=== PATIENT | male | born 1965 | race Caucasian/White ===

== ENCOUNTER 2018-05-20 12:20 | Outpatient (REF) | payer OTHER, SELFPAY ==
[2018-05-20 14:25] LABS: BUN 11 mg/dL (7-18); CREATININE 1.21 mg/dL (0.70-1.30); Calcium 9.1 mg/dL (8.5-10.1); Chloride 104 mmol/L (98-107); Cholesterol 224 mg/dL (50-200); Glucose 98 mg/dL (70-100); HDL Cholesterol 42 mg/dL (40-60); LDL CHOLESTEROL 162 mg/dL (<100); Potassium 4.5 mmol/L (3.5-5.1); Sodium 142 mmol/L (136-145); Triglyceride 138 mg/dL (30-150)
== END 2018-05-20 12:40 ==
LOC: NCHCN 12:20
PROVIDERS: PCP Family Medicine; Visit Provider Nurse Practitioner Family
DX: Z00.00 Encounter for general adult medical examination without abnormal findings (principal); Z13.220 Encounter for screening for lipoid disorders; Z13.228 Encounter for screening for other metabolic disorders
CPT/HCPCS: 80048; 80061; 83721

== ENCOUNTER 2018-10-16 09:29 | Outpatient (REF) | payer OTHER, SELFPAY ==
[2018-10-16 12:43] LABS: HCT 39.5 % (40.0-50.0); HGB 13.6 g/dL (13.5-17.5); Mean Corp. HGB Concentration 34.4 g/dL (32.0-36.0); Mean Corpuscular Hemoglobin 27.3 pg (27.0-33.0); Mean Corpuscular Volume 79.2 fL (80-95); Mean Platelet Volume 10.7 fL (8.0-11.0); Platelet Count 257 x1000/uL (130-400); RBC 4.99 m/cumm (4.50-6.00); RBC Distribution Width 13.7 % (11.8-14.1); White Blood Cell Count 6.32 k/cumm (4.4-10.8)
== END 2018-10-16 09:49 ==
LOC: NCHCN 09:29
PROVIDERS: PCP Family Medicine; Visit Provider Nurse Practitioner Family
DX: R53.83 Other fatigue (principal)
CPT/HCPCS: 85027; 84443

== ENCOUNTER 2020-05-19 19:57 | Outpatient (REF) | payer OTHER, SELFPAY ==
[2020-05-19 21:43] LABS: Anion Gap 9.2 mmol/L (3-11); BUN 15 mg/dL (7-18); CO2 29.8 mmol/L (21.0-32.0); CREATININE 1.25 mg/dL (0.70-1.30); Calculated LDL 142 mg/dL (<100); Chloride 104 mmol/L (98-107); Cholesterol 224 mg/dL (<200); Glucose 107 mg/dL (74-106); HDL Cholesterol 37 mg/dL (40-60); Potassium 4.5 mmol/L (3.5-5.1); Sodium 143 mmol/L (136-145); Triglyceride 225 mg/dL (<150)
== END 2020-05-19 20:17 ==
LOC: NCHCN 19:57
PROVIDERS: PCP Family Medicine; Visit Provider Nurse Practitioner Family
DX: E78.5 Hyperlipidemia, unspecified (principal); I10 Essential (primary) hypertension
CPT/HCPCS: 80048; 80061

== ENCOUNTER 2021-08-04 16:08 | Outpatient (REF) | payer OTHER, SELFPAY ==
[2021-08-05 12:35] LABS: COVID-19 RT-PCR UVMMC Result Negative (Negative)
== END 2021-08-04 16:09 | disposition home or self-care (01) ==
LOC: LBN 16:08
PROVIDERS: PCP Family Medicine; Visit Provider Physician Assistant Medical
DX: Z20.822 Contact with and (suspected) exposure to COVID-19 (principal); J34.89 Other specified disorders of nose and nasal sinuses
CPT/HCPCS: U0003

== ENCOUNTER 2022-07-20 18:37 | Outpatient (REF) | payer OTHER, SELFPAY ==
[2022-07-20 19:26] LABS: Anion Gap 8.2 mmol/L (3-11); BUN 17 mg/dL (7-18); CO2 28.8 mmol/L (21.0-32.0); Calcium 8.9 mg/dL (8.5-10.1); Calculated LDL 85 mg/dL (<100); Chloride 103 mmol/L (98-107); Cholesterol 161 mg/dL (<200); Estimated GFR 88.33 (mL/min/1.73m2); Glucose 100 mg/dL (74-106); HDL Cholesterol 46 mg/dL (40-60); Potassium 3.8 mmol/L (3.5-5.1); Sodium 140 mmol/L (136-145); Triglyceride 150 mg/dL (<150)
== END 2022-07-20 18:38 | disposition home or self-care (01) ==
LOC: NCHCN 18:37
PROVIDERS: PCP Family Medicine; Visit Provider Family Medicine
DX: E78.5 Hyperlipidemia, unspecified (principal); I10 Essential (primary) hypertension
CPT/HCPCS: 80048; 80061

== ENCOUNTER 2022-10-05 09:51 | Emergency (ER) | payer OTHER, SELFPAY ==
[2022-10-05 09:56] VITALS: BP 142/83; PULSE 88; RESP 18; TEMP 36.9; O2SAT 99
--- NOTE | 2022-10-05 10:00 | DI.US_ITS ---
Exam(s) US ABDOMEN EXAM: US ABDOMEN CLINICAL HISTORY: Right upper quadrant pain TECHNIQUE: Ultrasound abdomen performed using standard protocol. COMPARISON: CT ABD PELVIS WITH CONTRAST from 07/19/2016 FINDINGS: ABDOMINAL AORTA AND IVC: Visualized portions normal caliber. PANCREAS: Normal where visualized. LIVER: There is increased echogenicity of the liver consistent with fatty infiltration. Hepatopedal flow in the Portal Vein. GALLBLADDER:No evidence of cholelithiasis. No evidence of wall thickening. No pericholecystic fluid i dentified. BILIARY SYSTEM: Common bile duct measures < 7 mm. No intrahepatic biliary ductal dilation. ASHRAF'S SIGN: Negative. KIDNEYS: Kidneys are symmetric in size. No evidence of renal calculi. No evidence of hydronephrosis. No renal mass or cyst identified. SPLEEN: The liver measures 13.3 cm. ASCITES: None seen. IMPRESSION: 1. Hepatic steatosis. 2. Findings were discussed with Aron Silveira at 12:56 p.m. on 10/05/2022. DATA REPOSITORY:
--- OUTSIDE RECORDS SUMMARY | 2022-10-05 10:00 | XMS_ITS ---
Author Name Mars Trinh Address [address], [place] [id number] [facility] Address [address], [place] [id number] Care Team Providers Care Sales Clerk Name Role Phone Mars Trinh Unavailable [phone] PROBLEMS Type Condition ICD9-CM Code [id number] Code Onset Dates Condition Status SNOMED Code Problem History of sinusitis Z87.09 Active 861425327 Problem Deviated nasal septum J34.2 Active 780028842 Problem Hypertrophy of nasal turbinates J34.3 Active 26125160 Problem Chronic ethmoidal sinusitis J32.2 Active 58189064 Problem Chronic sphenoidal sinusitis J32.3 Active 25372827 Problem Chronic maxillary sinusitis J32.0 Active 97965567 Problem Chronic frontal sinusitis J32.1 Active 98924035 Problem Screening for colon cancer Z12.11 Active 731087230 Problem Cervical spine pain M54.2 Active 80154886 Problem Dysfunction of both eustachian tubes H69.83 Active 609709667897192 0 Problem Acute sinusitis J01.90 Active 44092981 Problem Mastoiditis of right side H70.91 Active 96303867 Problem Otalgia, right ear H92.01 Active 97082 004 Problem Environmental allergies Z91.09 Active 413366854 Problem Mastoiditis, left H70.92 Active 553238 01 Problem Dysphagia R13.10 Active 59493757 Problem Acute recurrent ethmoidal sinusitis J01.21 Active 61734222 Problem Multiple lipomas D17.9 Active 4652800 2 Problem Metatarsalgia, left foot M77.42 Active 206047023555298 Problem Sinus congestion R09.81 Active 6981920 5 Problem HTN (hypertension) I10 Active 51261 003 Problem Postnasal drip R09.82 Active 04222626 Problem Hyperlipidemia E78.5 Active 88904681 Problem Nasal polyp J33.9 Active 53304279 Problem Allergic rhinitis due to allergen J30.9 Active 72381242 Problem Back pain M54.9 Active 490322349 Problem Subcutaneous mass R22.9 Active 090119 79385035403 Problem Chronic sinusitis J32.9 Active 340699 00 Problem Degenerative joint disease M19.90 Active 877625979 ALLERGIES Substance Reaction Event Type Date Status environmental Unknown Non Drug Allergy Aug, Act tabatha Vancomycin HCl Unknown Drug Allergy Aug, Active Lisinopril Unknown Drug Allergy Aug, Active Aspirin Unknown Drug Allergy Aug, Active ENCOUNTERS Encounter Location Date Diagnosis [facility] [address] [place], [place] [id number] Aug, Subacute frontal sinusitis J01.10 and Multiple lipomas D17.9 [facility] [address] [place], [place] [id number] Aug, [facility] [address] [place], [place] [id number] Dec, [facility] [address] [place] [id number] Aug, Chronic ethmoidal sinusitis J32.2 [facility] [address] [place], [place] [id number] Dec, Chronic ethmoidal sinusitis J32.2 [facility] [address] [place], [place] [id number] Sep, [facility] [address] [place] [id number] Aug, Acute recurrent ethmoidal sinusitis J01.21 ; Chronic maxillary sinusitis J32.0 ; Allergic rhinitis due to allergen J30.9 ; Environmental allergies Z91.09 ; Postnasal drip R09.82 and Chronic ethmoidal sinusitis J32.2 [facility] [address] [place], [place] [id number] Aug, [facility] [address] [place], [place] [id number] Aug, Deviated nasal septum J34.2 ; Hypertrophy of nasal turbinates J34.3 and Environmental allergies Z91.09 [facility] [address] [place] [id number] Aug, Contusion of nose, initial encounter S00.33XA [facility] [address] [place], [place] [id number] Dec, Conductive hearing loss of right ear with unrestricted hearing of left ear H90.11 [facility] [address] [place], [place] [id number] Dec, Mastoiditis of right side H70.91 and Otalgia, right ear H92.01 [facility] [address] [place] [address] [address] [place], [place] [id number] Dec, [facility] [address] [place] [id number] Dec, Conductive hearing loss, unilateral, right ear, with unrestricted hearing on the contralateral side H90.11 [facility] [address] [place], [place] [id number] Dec, Mastoiditis of right side H70.91 ; Otalgia, right ear H92.01 ; Dysfunction of both eustachian tubes H69.83 ; Nasal polyp J33.9 ; Allergic rhinitis due to allergen J30.9 ; Chronic frontal sinusitis J32.1 ; Chronic ethmoidal sinusitis J32.2 and Chronic sphenoidal sinusitis J32.3 [facility] [address] [place], [place] [id number] Aug, Dysfunction of both eustachian tubes H69.83 [facility] [address] [place], [place] [id number] Mar, Allergic rhinitis due to allergen J30.9 [facility] [address] [place], [place] [id number] Mar, Allergic rhinitis due to allergen J30.9 [facility] [address] [place], [place] [id number] Mar, Allergic rhinitis due to allergen 477.8 [facility] [address] [place] [address] [place] [id number] Mar, Allergic rhinitis due to allergen 477.8 [facility] [address] [place] [id number] Mar, Allergic rhinitis due to allergen 477.8 N [facility] [address] [place], [place] [id number] Jan, Allergic rhinitis due to allergen 477.8 [facility] [address] [place], [place] [id number] Jan, ALLERGIC RHINITIS NOS 477.9 and Postnasal drip 784.91 [facility] [address] [place] [address] [address] [place], [place] [id number] Dec, ALLERGIC RHINITIS NEC 477.8 N [facility] [address] [place], [place] [id number] Dec, Allergic rhinitis due to allergen 477.8 [facility] [address] [place], [place] [id number] Dec, Allergic rhinitis due to allergen 477.8 [facility] [address] [place], [place] [id number] Dec, Allergic rhinitis due to allergen 477.8 [facility] [address] [place], [place] [id number] Nov, Allergic rhinitis due to allergen 477.8 [facility] [address] [place], [place] [id number] Nov, Allergic rhinitis due to allergen 477.8 [facility] [address] [place], [place] [id number] Nov, Chronic sphenoidal sinusitis 473.3 ; Chronic ethmoidal sinusitis 473.2 ; Chronic frontal sinusitis 473.1 ; Chronic maxillary sinusitis 473.0 ; Nasal polyp 471.9 and ALLERGIC RHINITIS NOS 477.9 N [facility] [address] [place], [place] [id number] Nov, Allergic rhinitis due to allergen 477.8 [facility] [address] [place], [place] [id number] Nov, [facility] [address] [place] [id number] Nov, [facility] [address] [place], [place] [id number] October, Allergic rhinitis due to allergen 477.8 [facility] [address] [place], [place] [id number] October, Chronic sinusitis 473.9 [facility] [address] [place], [place] [id number] October, Chronic sphenoidal sinusitis 473.3 ; Chronic ethmoidal sinusitis 473.2 ; Chronic frontal sinusitis 473.1 ; Chronic maxillary sinusitis 473.0 ; Chronic sinusitis 473.9 ; Nasal polyp 471.9 ; 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 and Hypertrophy of nasal turbinates 478.0 [facility] [address] [place], [place] [id number] October, [facility] [address] [place], [place] [id number] October, Nasal polyp 471.9 ; Allergic rhinitis due to allergen 477.8 ; Chronic maxillary sinusitis 473.0 ; Chronic frontal sinusitis 473.1 ; Chronic ethmoidal sinusitis 473.2 ; Chronic sphenoidal sinusitis 473.3 ; 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 and Hypertrophy of nasal turbinates 478.0 [facility] [place] [address] [place], [place] [id number] Sep, [facility] [address] [place], [place] [id number] Sep, Allergic rhinitis due to allergen 477.8 [facility] [address] [place], [place] [id number] Sep, Allergic rhinitis due to allergen 477.8 [facility] [address] [place], [place] [id number] Sep, Allergic rhinitis due to allergen 477.8 [facility] [address] [place], [place] [id number] Aug, Chronic sinusitis NOS 473.9 ; Allergic rhinitis due to allergen 477.8 ; ALLERGIC RHINITIS NOS 477.9 ; Nasal polyp 471.9 and Postnasal drip 784.91 [facility] [address] [place], [place] [id number] Aug, Allergic rhinitis due to allergen 477.8 [facility] [address] [place] [id number] Aug, Allergic rhinitis due to allergen 477.8 [facility] [address] [place] [id number] Aug, ALLERGIC RHINITIS NOS 477.9 [facility] [address] [place] [address] [address] [place] [id number] Aug, ALLERGIC RHINITIS NEC 477.8 [facility] [address] [place], [place] [id number] Aug, Acute sinusitis 461.9 ; ALLERGIC RHINITIS NOS 477.9 ; Nasal polyp 471.9 and Chronic sinusitis 473.9 [facility] [address] [place] [id number] Aug, [facility] [address] [place] [id number] Aug, Allergic rhinitis due to allergen 477.8 [facility] [address] [place] [id number] Aug, Allergic rhinitis due to allergen 477.8 [facility] [address] [place] [id number] Jul, Chronic sinusitis NOS 473.9 ; Acute sinusitis 461.9 ; Allergic rhinitis due to allergen 477.8 ; ALLERGIC RHINITIS NOS 477.9 ; Postnasal drip 784.91 ; Nasal polyp 471.9 and Chronic sinusitis 473.9 [facility] [address] [place], [place] [id number] Jul, [facility] [address] [place], [place] [id number] Jul, Allergic rhinitis due to allergen 477.8 [facility] [address] [place], [place] [id number] Jul, [facility] [address] [place], [place] [id number] Jul, ALLERGIC RHINITIS NOS 477.9 ; Postnasal drip 784.91 ; Nasal polyp 471.9 and Chronic sinusitis 473.9 [facility] [address] [place] [id number] May, Allergic rhinitis due to allergen 477.8 [facility] [address] [place], [place] [id number] May, Allergic rhinitis due to allergen 477.8 [facility] [address] [place], [place] [id number] May, ALLERGIC RHINITIS NEC 477.8 [facility] [address] [place], [place] [id number] May, [facility] [address] [place] [id number] May, Allergic rhinitis due to allergen 477.8 [facility] [address] [place], [place] [id number] May, Allergic rhinitis due to allergen 477.8 [facility] [address] [place] [id number] May, Allergic rhinitis due to allergen 477.8 [facility] [address] [place] [id number] May, Allergic rhinitis due to allergen 477.8 [facility] [address] [place], [place] [id number] May, Allergic rhinitis due to allergen 477.8 N [facility] [address] [place], [place] [id number] May, Allergic rhinitis due to allergen 477.8 [facility] [address] [place], [place] [id number] Mar, Chronic sinusitis NOS 473.9 ; Nasal polyp NOS 471.9 and Allergic rhinitis due to allergen 477.8 N [facility] [address] [place], [place] [id number] Mar, Allergic rhinitis due to allergen 477.8 [facility] [address] [place], [place] [id number] Mar, Allergic rhinitis due to allergen 477.8 [facility] [address] [place], [place] [id number] Mar, ALLERGIC RHINITIS NOS 477.9 [facility] [address] [place], [place] [id number] Mar, ALLERGIC RHINITIS NEC 477.8 [facility] [address] [place], [place] [id number] Mar, Allergic rhinitis due to allergen 477.8 [facility] [place] [address], [address] [place], [place] [id number] Mar, Nasal polyp NOS 471.9 ; Chronic sinusitis NOS 473.9 and Acute sinusitis 461.9 [facility] [address] [place], [place] [id number] Mar, [facility] [address] [place] [address] [address] [place], [place] [id number] Dec, Nasal polyp NOS 471.9 and Chronic sinusitis NOS 473.9 [facility] [address] [place] [id number] Nov, [facility] [address] [place] [id number] October, [facility] [address] [place] [id number] Sep, ALLERGIC RHINITIS NOS 477.9 ; Nasal polyp NOS 471.9 and Postnasal drip 784.91 [facility] [address] [place] [id number] Sep, Nasal polyp NOS 471.9 and Chronic sinusitis NOS 473.9 [facility] [address] [place] [id number] Aug, Nasal polyp NOS 471.9 and Chronic sinusitis NOS 473.9 [facility] [address] [place] [id number] Jul, [facility] [address] [place] [id number] May, Nasal polyp NOS 471.9 ; Chronic sinusitis NOS 473.9 and Acute sinusitis 461.9 [facility] [address] [place] [id number] May, [facility] [address] [place] [id number] Jul, [facility] [address] [place] [id number] Jul, Nasal polyp NOS 471.9 and Chronic sinusitis NOS 473.9 [facility] [address] [place] [address] [place] [id number] May, Chronic sinusitis NOS 473.9 and Nasal polyp NOS 471.9 [facility] [address] [place] [id number] May, [facility] [address] [id number] May, Chronic sinusitis NOS 473.9 and Nasal polyp NOS 471.9 IMMUNIZATIONS No Known Immunizations SOCIAL HISTORY Never Assessed REASON FOR REFERRAL FUNCTIONAL STATUS PLAN OF CARE Activity Details VITAL SIGNS Height 5 ft 6 in in 2022-09-14 Height 5 ft 6 in in 2021-09-22 Height 66 in 2018-09-08 Height 66 in 2018-08-11 Height 66 in 2017-08-12 Height 66 in 2017-01-28 Height 66 in 2017-01-21 Height 66 in 2016-08-20 Height 66 in 2015-02-07 Height 66 in 2014-12-06 Height 66 in 2014-11-24 Height 66 in 2014-11-01 Height 66 in 2014-09-27 Height 66 in 2014-08-30 Height 66 in 2014-07-05 Height 66 in 2014-03-18 Height 66 in 2014-01-20 Height 66 in 2013-10-22 Height N/A in 2013-10-21 Height N/A in 2013-08-17 Height N/A in 2012-07-14 Height 66 in 2012-06-18 Height 66 in 2012-05-28 Weight 215 lbs 2022-09-14 Weight 210 lbs 2021-09-22 Weight 190 lbs 2018-09-08 Weight 193 lbs 2018-08-11 Weight 188 lbs 2017-08-12 Weight 189 lbs 2017-01-28 Weight 189 lbs 2017-01-21 Weight 185 lbs 2016-08-20 Weight 180 lbs 2015-02-07 Weight 185 lbs 2014-12-06 Weight 179 lbs 2014-11-24 Weight 180 lbs 2014-11-01 Weight 175 lbs 2014-09-27 Weight 175 lbs 2014-07-05 Weight 179 lbs 2014-03-18 Weight 180 lbs 2014-01-20 Weight 176 lbs 2013-10-22 Weight 176 lbs 2013-10-21 Weight 175 lbs 2013-08-17 Weight 175 lbs 2012-07-14 Weight 175 lbs 2012-06-18 Weight 175 lbs 2012-05-28 Heart Rate 92 /min 2022-09-14 Heart Rate 80 /min 2021-09-22 Heart Rate 70 /min 2014-07-05 Heart Rate 76 /min 2014-03-18 Heart Rate 74 /min 2014-01-20 Heart Rate 74 /min 2013-10-22 Heart Rate 76 /min 2013-10-21 Heart Rate 80 /min 2013-08-17 Heart Rate 72 /min 2012-07-14 Heart Rate 72 /min 2012-06-18 Heart Rate 68 /min 2012-05-28 Oximetry 98 2022-09-14 Oximetry 97 2021-09-22 Respiratory Rate 16 /min 2014-07-05 Respiratory Rate 16 /min 2014-03-18 Respiratory Rate 16 /min 2014-01-20 Respiratory Rate 16 /min 2013-10-21 Respiratory Rate 16 /min 2013-08-17 Respiratory Rate 15 /min 2012-06-18 Respiratory Rate 16 /min 2012-05-28 BMI 34.70 kg/m2 2022-09-14 BMI 33.89 kg/m2 2021-09-22 BMI 30.66 kg/m2 2018-09-08 BMI 31.15 kg/m2 2018-08-11 BMI 30.34 kg/m2 2017-08-12 BMI 30.50 kg/m2 2017-01-28 BMI 30.50 kg/m2 2017-01-21 BMI 29.86 kg/m2 2016-08-20 BMI 29.05 kg/m2 2015-02-07 BMI 29.86 kg/m2 2014-12-06 BMI 28.89 kg/m2 2014-11-24 BMI 29.05 kg/m2 2014-11-01 BMI 28.24 kg/m2 2014-09-27 BMI 28.24 kg/m2 2014-07-05 BMI 28.89 kg/m2 2014-03-18 BMI 29.05 kg/m2 2014-01-20 BMI 28.40 kg/m2 2013-10-22 BMI 28.40 kg/m2 2013-10-21 BMI 28.24 kg/m2 2013-08-17 BMI 28.24 kg/m2 2012-07-14 BMI 28.24 kg/m2 2012-06-18 BMI 28.24 kg/m2 2012-05-28 Blood pressure systolic 122 mm Hg Blood pressure diastolic 78 mm Hg 2022-08 MEDICATIONS Medication Instructions Dosage Frequency Start Date End Date Duration Status Multivitamins - Not-Gema ng Nabumetone 500 MG Orally Twice a day 1 tablet 12h 30 day(s) Active Vitamin C 500 MG Orally Once a day 1 tablet 24h Not-Gema ng Cetirizine HCl 10 MG TAKE 1 TABLET BY MOUTH EVERY DAY 30 Not-Taki ng Medrol dose wendy 4mg oral daily 24-4 mg over 6 days 24h 6 days Not-Filipei ng Fluticasone Propionate 50 MCG/ACT Nasally Once a day 1 spray in each nostril 24h Not-Taki ng amLODIPine Besylate 5 MG Orally Once a day 1 tablet 24h 30 day(s) Active Flonase 50 MCG/ACT Nasally Once a day 1 spray in each nostril 24h Aug, 30 day(s) Active Atorvastatin Calcium 40 MG Orally Once a day 1 tablet 24h 30 day(s) Active Vitamin B Complex - Not-Taki ng Augmentin 875-125 MG Orally every 12 hrs as directed 12h 10 Not-Taki ng Ibuprofen 200 MG Orally every 6 hrs 1 tablet with food or milk as needed 6h Active Valsartan 80 MG Orally Once a day 1 tablet 24h 30 day(s) Active Tylenol Sinus Congestion/Pain Not- Taki ng PROCEDURES Procedure Date Ordered Result Body Site REPAIR OF NASAL SEPTUM November 11, 2014 REMOVAL OF TURBINATE BONES November 11, 2014 INTRADERMAL TESTS September 06, 2014 ALLERGY INJ MULT November 29, 2014 SCAN PROC CRANIAL EXTRA November 11, 2014 ALLERGY INJ MULT Apr 25, 2015 ALLERGY INJ MULT May 17, 2014 ALLERGY INJ MULT May 03, 2014 ALLERGY INJ MULT Aug 09, 2014 ALLERGY INJ MULT Mar 28, 2015 ALLERGY INJ MULT Feb 07, 2015 ALLERGY INJ MULT Jul 19, 2014 ALLERGY INJ MULT December 13, 2014 ALLERGY INJ MULT September 22, 2014 ALLERGY INJ MULT Jan 31, 2015 M ANTIGEN THERAPY SERV (1ml=1unit) Apr 07, 2014 ALLERGY INJ MULT November 24, 2014 ALLERGY INJ MULT January 10, 2015 ALLERGY INJ MULT September 27, 2014 SINUS ENDOSCOPY, SURGICAL November 11, 2014 ALLERGY INJ MULT Jun 21, 2014 ALLERGY INJ MULT October 11, 2014 ALLERGY INJ MULT December 27, 2014 REMOVAL OF ETHMOID SINUS November 11, 2014 ALLERGY INJ MULT Apr 14, 2014 NASAL/SINUS ENDOSCOPY, SURG September 08, 2018 ALLERGY INJ MULT May 31, 2014 NASAL/SINUS ENDOSCOPY, SURG November 11, 2014 INTRADERMAL TESTS Apr 05, 2014 ENDOSCOPY, MAXILLARY SINUS November 11, 2014 ALLERGY INJ MULT September 13, 2014 ENDOSCOPY, MAXILLARY SINUS November 11, 2014 REMOVAL OF ETHMOID SINUS November 11, 2014 NASAL/SINUS ENDOSCOPY, SURG December 06, 2014 M ANTIGEN THERAPY SERV (1ml=1unit) September 06, 2014 ALLERGY INJ MULT January 24, 2015 NASAL/SINUS ENDOSCOPY, SURG November 11, 2014 ALLERGY INJ MULT January 03, 2015 ALLERGY INJ MULT May 12, 2014 ALLERGY INJ MULT Apr 18, 2015 ALLERGY INJ MULT Aug 02, 2014 ALLERGY INJ MULT Jun 14, 2014 NASAL/SINUS ENDOSCOPY, SURG November 24, 2014 ALLERGY INJ MULT October 04, 2014 M ANTIGEN THERAPY SERV (1ml=1unit) Jun 15, 2014 ALLERGY INJ MULT November 01, 2014 ALLERGY INJ MULT Mar 21, 2015 ALLERGY INJ MULT Jun 28, 2014 INTRADERMAL TESTS Jul 05, 2014 SINUS ENDOSCOPY, SURGICAL November 11, 2014 ALLERGY INJ MULT October 25, 2014 PRICK TESTS Apr 05, 2014 ALLERGY INJ MULT Apr 26, 2014 M ANTIGEN THERAPY SERV (1ml=1unit) Mar 10, 2015 ALLERGY INJ MULT Feb 28, 2015 ALLERGY INJ MULT Jun 07, 2014 INTRADERMAL TESTS Apr 14, 2014 ALLERGY INJ MULT Apr 19, 2014 CREATE EARDRUM OPENING January 21, 2017 ALLERGY INJ MULT Mar 09, 2015 M ANTIGEN THERAPY SERV (1ml=1unit) January 20, 2015 ALLERGY INJ MULT Feb 21, 2015 ALLERGY INJ MULT Aug 16, 2014 ALLERGY INJ MULT December 20, 2014 ALLERGY INJ MULT December 06, 2014 ALLERGY INJ MULT January 17, 2015 ALLERGY INJ MULT May 24, 2014 RESULTS Name Result Date Reference Range CT SINUS 2014-07-30 REASON FOR VISIT Lumps on forehead, chart review, Rx Refill, ENT est. Nose Pain, ENT f/u sinus inf, PFP Est Patient (L), PFP PA Joint Visit. , sinus infection, script refill, ENT 1 mo fu, PFP EST PATIENT (S), script,ENT nose complaints, PFP Est Patient (L), ENT follow up, ears, possible nasal fracture from wrestling, no imaging, PFP Est Patient (L), ADUIO, ENT 1 week right ear Ciprodex Suspension, Augmentin, Ciprofloxacin, Ciprodex, AUDIO , ENT follow up after hospitalization. PFP EST PATIENT, ENT right ear pain. PFP EST PATIENT, ENT stuffy, plugged ears. PFP EST PATIENT. PFP EST PATIENT, ENT allery shot, Increase dose to 0.15cc.. PFP Allergy multi-injections, ENT allery shot. PFP Allergy multi-injections,ENT INJ, Increase dose to 0.20cc. PFP Allergy multi-injections, ENT INJ, Increase dose to 0.15cc. PFP Allergy multi-injections, ENT NEW SERUM, ENT allergy shot, Increase dose to 0.10cc. PFP Allergy multi-injections, ENT allergy shot. PFP Allergy multi-injections, ENT Allergy Shot. PFP Allergy multi-injections, ENT-Test wheal w pfp. PFP Allergy single test wheal. PFP Allergy 3 month f/u, ENT-Test wheal w pfp, ENT-Test wheal w pfp, ENT Allergy Shot. PFP Allergy multi-injections, ENT- New Serum, ENT Allergy Shot. PFP Allergy multi-injections, ENT Allergy Shot. PFP Allergy multi-injections, ENT Allergy Shot. PFP Allergy multi-injections, ENT post-op 2 week debridement , ENT allergy shot. PFP Allergy multi-injections, ENT allergy shot. PFP Allergy multi-injections, ENT allergy shot. PFP Allergymulti- injections, ENT post-op 2 week debridement , ENT allergy shot. PFP Allergy multi-injections, post op question, ENT allergy shot. PFP Allergy multi- injections, Allergy shot. PFP Allergy multi-injections, ENT post-op; needs refill on flonase, # Disconnected, ENT FESS, medicated rinse, ENT pre op. PFP Allergy multi-injections, ENT allergy shot, pre op phone call, ENT Allergy Shot . PFP Allergymulti-injections, ENT Allergy Shot . PFP Allergy multi-injections, ENT Allergy Shot . PFP Allergy multi-injections, ENT Chronic sinusitis, post steroids, nasal polyps, nasal obstruction. PFP Allergy multi-injections, needs refill on singulair and flonase, ENT Allergy Shot , ENT Allergy Shot. PFP All ergy multi-injections, ENT Allergy Shot. PFP Allergy multi-injections, ENT Test wheal no pfp. PFP Allergy multi test wheals, ENT New Serum, ENT CT sinus review, pfp blank, CT appt, ENT f.u CT results, ENT allergy shot, ENT allergy shot. PFP Allergy multi-injections, ENT allergy shot. PFP Allergy multi-injections, ENT allergy shot. PFP Allergy multi-injections, ENT-3 MO FU, ? about ct scan, ENT f/u CT results, ENT allergy shot. PFP Allergy multi-injections, ENT allergy shot, CT, ENT test wheal with pfp. PFP Allergy 3 month f/u. PFP Allergy multi test wheals Intial snot 51 today 25, Vial 2, ENTtest wheal with pfp, ENT allergy shot. PFP Allergy multi-injections, ENT allergy shot. PFP Allergy multi- injections, ent serum, *Nasal polyp flare up, ENT allergy shot. PFP Allergy multi-injections, ENT allergy shot. PFP Allergy multi-injections, ENT allergy shot. PFP Allergy multi-injections, ENT allergy shot. PFP Allergy multi- injections, ENT allergy shot. PFP Allergy multi-injections, ENT ALLERGY SHOT . PFP Allergy multi-injections, ENT ALLERGY SHOT . PFP Allergy multi-injections, nasal polyp, chronic sinusitis, allergic rhinitis, ENT ALLERGY SHOT . PFP Allergy multi-injections, ent-3 mo fu , ENT TW . PFP Allergy multi-injections, ENT TW . PFP Allergy multi test wheals, ent serum 1st vial set, ent-allergy test. PFP Allergy Test, nasal congestion and sinus pressure, not feeling well, ent-allergy test, nasal congestion, sinus infection, ENT- Allergy Test, flonase, ent-allergy consult-ARNAV pt. PFP allergy discussion, nasal polyposis, chronic sinusitis, ENT 1 month follow up sinus, nasal congestion, SINUS INFECTION, ENT 1MTH F/U, increased nasal congestion, loss of sense of smell, green purulent rhinorrhea with left facial pain, rx request, ENT 6 MONTH FU, ENT-6 wk fu , Singulair/Flonase , 4 wk fu, chronic sinusitis, nasal polyposis, chronic sinusitis, nasal polyposis, Singulair denied, chronic nasal obstruction, chronic sinusitis, nasal polyps, ENT ChRONIC SINUSITIS, ENT ChRONIC SINUSITIS Insurance Providers Health Insurance Type Health Plan Insurance Address Health Plan Insurance Phone Health Plan Insurance Name Health Plan Coverage Dates Member ID Patient Relationship to Subscriber Patient Address Patient Phone Patient Name Patient Date of Subscriber ID Subscriber Name Subscriber Date of Group No [employer] [address] [place] [address] [employer] self Bladimir Josemanuel [id number]
--- NOTE | 2022-10-05 10:10 | ED.GENADUL_ITS ---
Discharge Plan Disposition Patient Disposition: Home Discharge Details Clinical Impression: Abdominal pain Primary Care Provider: Solo Aldridge ED Provider: Aron Silveira Home Meds and New Rx's Prescriptions: New omeprazole 20 mg capsule,delayed release(DR/EC) 20 mg PO DAILY Qty: 20 0RF Continued atorvastatin 20 mg tablet 20 mg PO DAILY amlodipine 10 mg tablet 10 mg PO DAILY multivitamin [Multi-Day] 1 EACH tablet 1 ea PO DAILY ascorbic acid (vitamin C) [Vitamin C] 500 MG tablet 500 mg PO DAILY vitamin B complex [B-Complex] 1 EACH tablet 1 tab PO DAILY valsartan 80 mg tablet 80 mg PO DAILY Patient Comments: TAKE ONE TABLET BY MOUTH EVERY DAY WITH AMLODIPINE FOR BLOOD PRESSURE ceftriaxone in dextrose,iso-os 2 GM/50 ML piggyback 2 gm IVPB Q24H Qty: 7 0RF Held naproxen 500 MG tablet 500 mg PO BID Qty: 20 1RF Hold Instructions: Please hold this medication for the next 2 weeks to see if your symptoms improve ibuprofen [Advil Liqui-Gel] 200 MG capsule 200 mg PO 3 TABS TID PRNQty: 0 0RF Hold Instructions: Please hold this medication for the next 2 weeks to see if your symptoms improve Discontinued fluticasone propionate 16 GM spray,suspension 1 spry Inhalation DAILY Patient Comments: is off this Discharge Instructions Instructions: Abdominal Pain (ED) Additional Instructions: Please stay away from any NSAID use as this may be contributing to your abdominal pain. Please take other medications as prescribed. If you do need pain medication acetaminophen/Tylenol [id number] is fine just take as directed on packaging. Follow-up with your primary care provider in the next 2 weeks for reassessment otherwise return to the emergency department for any new or significant worsening of symptoms. Referrals: Solo Aldridge [Primary Care Provider] - 2 weeks Medical Decision Making Patient presenting to the emergency department for chief complaint of abdominal pain that has been going on for greater than 1 month. He reports that 3 days ago symptoms worsened with some nausea and vomiting. He states continuous abdominal bloating and feeling like his abdomen is more tender to touch. Patient denies fever chills, diarrhea, chest pain shortness of breath or other complaints. Patient denies any significant past medical history of abdominal issues or familiar abdominal issues. Physical exam shows tenderness to the right upper quadrant and epigastrium otherwise exam is unremarkable. We will plan on checking patient's labs and ultrasound imaging. Will give Zofran and Toradol pending results. Reviewed patient's labs and CBC was completely unremarkable, patient did have slightly low potassium at 3.4, and magnesium was elevated at 2.5. CMP including lipase all results were otherwise within normal range. Patient did have high specific gravity on urinalysis but otherwise again unremarkable. Ultrasound imaging was negative for any gallbladder or liver or kidney findings, appraisal technician did state that the spleen was upper limits of normal but otherwise unremarkable. Reassessed patient and patient did state improvement of overall symptoms. We will encourage patient to follow-up with primary care provider for reassessment of his abdominal pain. With further discussion patient does state some heartburn type symptoms so will prescribe omeprazole and recommend patient eliminate or significantly reduce NSAID use. After discussion of diagnosis and plan of care patient has no further needs, questions, or concerns and states clear understanding to return to the emergency department for any worsening symptoms. After patient was discharged radiologist did call and state that patient did have some fatty liver disease but no emergent findings. I do not feel this change patient disposition and patient to follow-up with primary care provider. This documentation was generated using [employer] system, please disregard any oddities of phrase or misspellings. Lab Data Lab results reviewed: Yes I reviewed the patient's lab results. HPI General Mode of arrival: ambulatory . Date/Time Provider Initiated Documentation: 10/05/22 09:54 . Limitations to Documentation: no limitations . Information obtained by: RN notes reviewed . History of Present Illness 56 year old M presents to the emergency department with the chief complaint of Abdominal pain, described as moderate, with intensity rated at 6. Quality is described as aching, and is localized to the abdomen. Patient reports no radiation. Patient started experiencing this month(s) (1) and it has been intermittent. No relieving factors improve symptom(s), Eating worsens symptoms . Patient notes nausea/vomiting. Patient did receive the following treatments prior to arrival, none Related Data Home Medications Medication Instructions Recorded Confirmed multivitamin (Multi-Day tablet) 1 ea PO DAILY 10/19/13 10/05/22 ascorbic acid (vitamin C) 500 mg 500 mg PO DAILY 01/13/14 02/04/19 tablet (Vitamin C) vitamin B complex (B-Complex 1 tab PO DAILY 01/13/14 10/05/22 tablet) naproxen 500 mg tablet 500 mg PO BID #20 tabs 08/28/15 10/05/22 ceftriaxone 2 gram/50 mL in 2 gm (50 mL) IVPB Q24H ##7 01/17/17 02/04/19 dextrose (iso-osm) intravenous piggyback ibuprofen 200 mg capsule (Advil 200 mg PO 3 TABS TID PRN #0 01/17/17 02/04/19 Liqui-Gel) tab-caps amlodipine 10 mg tablet 10 mg PO DAILY 02/04/19 10/05/22 atorvastatin 20 mg tablet 20 mg PO DAILY 02/04/19 10/05/22 omeprazole 20 mg capsule,delayed 20 mg PO DAILY #20 caps 10/05/22 release valsartan 80 mg tablet 80 mg PO DAILY 10/05/22 10/05/22 Previous Rx's Medication Instructions Recorded naproxen 500 mg tablet 500 mg PO BID #20 tabs 08/28/15 ceftriaxone 2 gram/50 mL in 2 gm (50 mL) IVPB Q24H ##7 01/17/17 dextrose (iso-osm) intravenous piggyback ibuprofen 200 mg capsule (Advil 200 mg PO 3 TABS TID PRN #0 01/17/17 Liqui-Gel) tab-caps omeprazole 20 mg capsule,delayed 20 mg PO DAILY #20 caps 10/05/22 release Allergies Allergy/AdvReac Type Severity Reaction Status Date / Time aspirin Allergy Intermediate MAKES Unverified 10/05/22 10:00 NASAL POLYPS BLEED General Stated Complaint: Abd Prob MIGUEL A: 3 Review of Systems Constitutional Constitutional: Denies chills and Denies fever(s) Cardiovascular Cardiovascular: Denies chest pain and Denies dyspnea Respiratory Respiratory: Denies cough and Denies dyspnea Gastrointestinal Gastrointestinal: Reports as per HPI, Reports abdominal pain, Denies melena, Denies change in bowel habits, Denies constipation, Denies diarrhea, Reports nausea and Reports vomiting Genitourinary Genitourinary: Denies hematuria, Denies difficulty urinating, Reports urinary frequency and Denies urinary incontinence Integumentary/Breasts Skin/Breast: Denies rash PFSH All Active Problems (Updated 10/05/22 @ 12:32 by Aron Silveira NP) Abdominal pain (Acute) Multiple lipomas (Acute) Plantar fasciitis, bilateral (Acute) Carpal tunnel syndrome (Acute 12/10/13) Allergic rhinitis due to other allergen (Acute 04/05/14) allergy injections D/C Allergic rhinitis (Acute 04/14/14) Acute sinusitis (Acute 03/18/14) Hypertrophy of nasal turbinates (Chronic 11/01/14) Sore throat (viral) (Acute) Medical History Chronic ethmoidal sinusitis (11/01/14) Chronic frontal sinusitis (11/01/14) Chronic maxillary sinusitis (11/01/14) Chronic sinusitis (03/18/14) Chronic sphenoidal sinusitis (11/01/14) Deviated nasal septum (11/01/14) Dysfunction of both eustachian tubes (08/20/16) Mastoiditis of right side (01/28/17) Nasal polyp (03/18/14) Postnasal drip (07/05/14) Social History Smoking/Tobacco Use Status: Never Smoking risk assessment performed?: Yes Drug use: Never Substance use type: does not use Do you feel safe at home: Yes Do you feel safe in your relationship?: Yes Exam Const General: cooperative Orientation: alert, awake and oriented x3 Resp Effort & Inspection: normal respiratory effort and able to speak in complete sentences Auscultation: clear to auscultation bilaterally Cardio Rate: regular rate Rhythm: regular rhythm Heart Sounds: S1 normal and S2 normal GI Inspection: obesity Palpation: soft, not firm, no guarding, no masses, no pulsatile masses, not rigid, no splenomegaly and tender in the epigastrum and in the RUQ Auscultation: normal bowel sounds Back/Spine/Pelvis Back: no CVA tenderness Neuro General: patient alert, patient awake, patient oriented x3, gait normal and moves all extremities Course Vital Signs Vital signs: Vital Signs Temperature 36.9 C 10/05/22 09:56 Pulse 88 10/05/22 09:56 Respiratory Rate 18 10/05/22 09:56 Blood Pressure 142/83 H 10/05/22 09:56 Pulse Oximetry 99 10/05/22 09:56 Temperature 36.9 C 10/05/22 09:56 Temperature Source Oral 10/05/22 09:56 Pulse 88 10/05/22 09:56 Respiratory Rate 18 10/05/22 09:56 Respiratory Effort Normal, Non-Labored 10/05/22 10:03 Blood Pressure 142/83 H 10/05/22 09:56 Blood Pressure Position Sitting 10/05/22 09:56 Pulse Oximetry 99 10/05/22 09:56 Oxygen Delivery Method Room Air 10/05/22 09:56 Oxygen Flow Rate 0 10/05/22 09:56
[2022-10-05 10:28] LABS: Abs Immature Grans 0.02 10^3/uL (0.0-0.06); Absolute Basophil Count 0.02 10^3/uL (0.0-0.2); Absolute Eosinophil Count 0.17 10^3/uL (0.0-0.7); Absolute Monocyte Count 0.38 10^3/uL (0.1-0.8); Basophils % 0.4; Eosinophils % 3.4; HCT 43.3 % (40.0-50.0); HGB 14.5 g/dL (13.5-17.5); Immature Grans % 0.4; Lymphocytes % 32.1; MCH 27.1 pg (27.0-33.0); MCHC 33.5 % (32.0-36.0); MCV 81 fL (80-95); MPV 9.4 fL (8.0-11.0); Monocytes % 7.6; Neutrophils % 56.1; Platelet Count 236 10^3/uL (130-400); RBC 5.35 10^6/uL (4.36-5.78); RDW-SD 37.8 fL; WBC 4.99 10^3/uL (4.4-10.8)
[2022-10-05] MEDS: Ondansetron O.D.T. 4 MG TABEF PO (10:32)
[2022-10-05] MEDS: Ketorolac 15 MG/ML VIAL IVP (10:32)
[2022-10-05 11:16] LABS: ALT 58 U/L (16-63); AST 29 U/L (15-37); Alkaline Phosphatase 109 U/L (46-116); Anion Gap 6.2 mmol/L (3-11); BUN 12 mg/dL (7-18); Bilirubin, Total 0.6 mg/dL (0.2-1.0); CO2 30.8 mmol/L (21.0-32.0); CREATININE 1.2 mg/dL (0.70-1.30); Calcium 8.9 mg/dL (8.5-10.1); Chloride 105 mmol/L (98-107); Estimated GFR 70.98 (mL/min/1.73m2); Glucose 97 mg/dL (74-106); Lipase 25 U/L (16-77); Magnesium 2.5 mg/dL (1.8-2.4); Potassium 3.4 mmol/L (3.5-5.1); Sodium 142 mmol/L (136-145); Total Protein 7.5 g/dL (6.4-8.2)
[2022-10-05 12:12] LABS: Bilirubin Negative (Negative); Blood Negative (Negative); Clarity Clear (Clear); Glucose Negative (Negative); Ketones Negative (Negative); Leukocyte Esterase Negative (Negative); Nitrite Negative (Negative); Specific Gravity >= 1.030 (1.005-1.025); Urobilinogen 0.2 mg/dL (Up to 0.2)
== END 2022-10-05 12:48 | disposition home or self-care (01) ==
PROVIDERS: Emergency Provider Nurse Practitioner Family; PCP Family Medicine
DX: R10.9 Unspecified abdominal pain (principal); R14.0 Abdominal distension (gaseous); R10.811 Right upper quadrant abdominal tenderness; R10.816 Epigastric abdominal tenderness; R11.2 Nausea with vomiting, unspecified; E87.6 Hypokalemia; E83.41 Hypermagnesemia
CPT/HCPCS: 80053; 83690; 96374; 99285; 76700; 81003; 83735; 85025; 99284; J1885

== ENCOUNTER 2023-10-02 09:25 | Emergency (ER) | payer OTHER, SELFPAY ==
[2023-10-02 09:29] VITALS: BP 152/94; PULSE 86; RESP 16; TEMP 36.3; O2SAT 97
--- NOTE | 2023-10-02 10:02 | ED.GENADUL_ITS ---
Discharge Plan Disposition Patient Disposition: Home Condition: Stable Discharge Details Clinical Impression: Abdominal bloating, Abdominal pain Primary Care Provider: Solo Aldridge ED Provider: Arturo Myles Home Meds and New Rx's Prescriptions: No Action multivitamin [Multi-Day] 1 EACH tablet 1 ea PO DAILY nabumetone 500 mg tablet 500 mg PO BID PRN amlodipine 5 mg tablet 5 mg PO DAILY atorvastatin 40 mg tablet 40 mg PO DAILY fluticasone propionate [Flonase Allergy Relief] 50 mcg/actuation spray,suspension 1 spray intranasal DAILY Rx Instructions: administer into each nostril ascorbic acid (vitamin C) [Vitamin C] 500 MG tablet 500 mg PO DAILY vitamin B complex [B-Complex] 1 EACH tablet 1 tab PO DAILY naproxen 500 MG tablet 500 mg PO BID Qty: 20 1RF Hold Instructions: Please hold this medication for the next 2 weeks to see if your symptoms improve valsartan 80 mg tablet 80 mg PO DAILY Patient Comments: TAKE ONE TABLET BY MOUTH EVERY DAY WITH AMLODIPINE FOR BLOOD PRESSURE omeprazole 20 mg capsule,delayed release(DR/EC) 20 mg PO DAILY Qty: 20 0RF ibuprofen [Advil Liqui-Gel] 200 MG capsule 200 mg PO 3 TABS TID PRNQty: 0 0RF Hold Instructions: Please hold this medication for the next 2 weeks to see if your symptoms improve Discharge Instructions Instructions: Abdominal Pain (ED) Additional Instructions: Please contact your primary care physician to arrange follow-up. Return to the ER immediately for any worsening or new concerning symptoms. Referrals: Solo Aldridge [Primary Care Provider] - [facility] General Mode of arrival: ambulatory . Date/Time Provider Initiated Documentation: 10/02/23 09:41 . Limitations to Documentation: no limitations . Information obtained by: patient . HPI Narrative: 57-year-old male presents with chief complaint of abdominal pain. Patient notes pain diffuse abdomen with associated nausea and bloating. Patient notes symptoms have been ongoing for the past couple months. Worse today. Patient notes associated loose stool. Patient states he had colonoscopy a couple weeks ago that did show precancerous lesion that was excised. Patient does note intermittent rectal bleeding, not currently. Related Data Home Medications Medication Instructions Recorded Confirmed multivitamin (Multi-Day tablet) 1 ea PO DAILY 10/19/13 10/02/23 ascorbic acid (vitamin C) 500 mg 500 mg PO DAILY 01/13/14 10/02/23 tablet (Vitamin C) vitamin B complex (B-Complex 1 tab PO DAILY 01/13/14 10/02/23 tablet) naproxen 500 mg tablet 500 mg PO BID #20 tabs 08/28/15 10/02/23 ibuprofen 200 mg capsule (Advil 200 mg PO 3 TABS TID PRN #0 01/17/17 10/02/23 Liqui-Gel) tab-caps omeprazole 20 mg capsule,delayed 20 mg PO DAILY #20 caps 10/05/22 10/02/23 release valsartan 80 mg tablet 80 mg PO DAILY 10/05/22 10/02/23 amlodipine 5 mg tablet 5 mg PO DAILY 12/06/22 10/02/23 atorvastatin 40 mg tablet 40 mg PO DAILY 12/06/22 10/02/23 fluticasone propionate 50 1 spray intranasal DAILY 12/06/22 10/02/23 mcg/actuation nasal spray,suspension (Flonase Allergy Relief) nabumetone 500 mg tablet 500 mg PO BID PRN 12/06/22 10/02/23 Previous Rx's Medication Instructions Recorded naproxen 500 mg tablet 500 mg PO BID #20 tabs 08/28/15 ibuprofen 200 mg capsule (Advil 200 mg PO 3 TABS TID PRN #0 01/17/17 Liqui-Gel) tab-caps omeprazole 20 mg capsule,delayed 20 mg PO DAILY #20 caps 10/05/22 release Allergies Allergy/AdvReac Type Severity Reaction Status Date / Time aspirin Allergy Intermediate MAKES Unverified 10/02/23 11:29 NASAL POLYPS BLEED General Stated Complaint: Abd Prob MIGUEL A: 3 Review of Systems All systems reviewed & are unremarkable except as noted in HPI and below Constitutional Constitutional: Denies fever(s) Gastrointestinal Gastrointestinal: Reports as per HPI, Reports abdominal pain and Reports diarrhea Exam Const General: cooperative and no acute distress [facility] Head: normocephalic and atraumatic Mouth: moist mucous membranes Eyes Conjunctivae: normal conjunctivae Sclera: normal sclerae Resp Auscultation: clear to auscultation bilaterally, no rales, no rhonchi and no wheezes Cardio Rate: regular rate and not tachycardic Rhythm: regular rhythm GI Palpation: soft, not firm, no guarding, no masses, not rigid and tender (diffuse, worse periumbilical ) with no rebound tenderness Skin General skin exam: no rashes or lesions noted Neuro General: patient alert, patient awake, patient oriented x3 and tone normal Extrem General: no edema Course Vital Signs Vital signs: Vital Signs Temperature 36.3 C L 10/02/23 09:29 Pulse 86 10/02/23 09:29 Respiratory Rate 16 10/02/23 09:29 Blood Pressure 152/94 H 10/02/23 09:29 Pulse Oximetry 97 10/02/23 09:29 Temperature 36.3 C L 10/02/23 09:29 Temperature Source Temporal Artery Scan 10/02/23 09:29 Pulse 86 10/02/23 09:29 Respiratory Rate 16 10/02/23 09:29 Respiratory Effort Non-Labored, Short of Breath 10/02/23 09:31 Blood Pressure 152/94 H 10/02/23 09:29 Blood Pressure Position Sitting 10/02/23 09:29 Pulse Oximetry 97 10/02/23 09:29 Oxygen Delivery Method Room Air 10/02/23 09:29 Oxygen Flow Rate 0 10/02/23 09:29 Pain Level 8 10/02/23 09:29 Medical Decision Making 1105 --57-year-old male here with abdominal pain over the past few months, worse over the past couple days, associated nausea and bloating. Patient has diffuse abdominal tenderness with more severe tenderness periumbilical. Patient did have colonoscopy a couple weeks ago that revealed precancerous lesion that was excised. Consider acute surgical pathology -consider appendicitis. Consider pancreatitis. Will assess with CT of the abdomen pelvis and labs. -- Labs reviewed: Patient does have mild elevation of LFTs. Acute hepatitis panel was sent. 1222 --CT of the abdomen pelvis was interpreted by radiology: 1. No acute abdominal or pelvic process. 2. Hepatomegaly and hepatic steatosis. Plan will be for discharge with outpatient follow-up with his PCP. He was encouraged to maintain clear liquid diet today and advance slowly thereafter. Usual customary discharge instructions were reviewed. Quality:SDOH Health Related Social Needs: No Data to Display PFSH All Active Problems (Updated 10/02/23 @ 12:24 by Arturo Myles MD) Abdominal pain (Acute) Abdominal bloating (Acute) DJD (degenerative joint disease) (Chronic) Hypertension (Chronic) Hyperlipidemia (Acute) Multiple lipomas (Acute) Plantar fasciitis, bilateral (Acute) Carpal tunnel syndrome (Acute 12/10/13) Allergic rhinitis due to other allergen (Acute 04/05/14) allergy injections D/C Allergic rhinitis (Acute 04/14/14) Acute sinusitis (Acute 03/18/14) Hypertrophy of nasal turbinates (Chronic 11/01/14) Sore throat (viral) (Acute) Medical History Chronic ethmoidal sinusitis (11/01/14) Chronic frontal sinusitis (11/01/14) Chronic maxillary sinusitis (11/01/14) Chronic sinusitis (03/18/14) Chronic sphenoidal sinusitis (11/01/14) Deviated nasal septum (11/01/14) Dysfunction of both eustachian tubes (08/20/16) Mastoiditis of right side (01/28/17) Nasal polyp (03/18/14) Postnasal drip (07/05/14) Surgical History H/O sinus surgery 1989 Social History Smoking/Tobacco Use Status: Never Smoking risk assessment performed?: Yes Alcohol Intake: never Drug use: Never Substance use type: does not use Do you feel safe at home: Yes Do you feel safe in your relationship?: Yes POCUS Exam (ED) Limited Gallbladder Exam DATE OF EXAM: 10/02/23 TIME OF EXAM: 12:36 PROVIDER THAT PERFORMED THE STUDY: Arturo Myles IS THIS A REPEAT EXAM DURING THIS ENCOUNTER: No REASON FOR VISIT: Abdominal pain VISUALIZED STRUCTURES: Gallbladder and Liver PERTINENT FINDINGS/IMPRESSION: No apparent abnormalities; No Cholecystitis, No Cholelithiasis, No Pericholecystic fluid and No thickening of the gallbladder wall Exam complete
[2023-10-02 10:10] VITALS: BP 152/94; PULSE 86; RESP 16; TEMP 36.3; O2SAT 97
--- NOTE | 2023-10-02 10:45 | DI.CT_ITS ---
Exam(s) CT ABDOMEN PELVIS W EXAM: CT ABDOMEN PELVIS W CLINICAL HISTORY: diffuse abd pain, ttp mid abd, bloated TECHNIQUE: Imaging Protocol: Axial computed tomography images with coronal and sagittal reformatted images were created and reviewed. CONTRAST MATERIAL: Intravenous: Omnipaque 350 Contrast volume:100 mL Oral: No COMPARISON: CT ABD PELVIS WITH CONTRAST from 07/19/2016 FINDINGS: ABDOMEN: Lung Bases: Normal where visualized. Liver: There is fatty infiltration of the liver. The liver is enlarged. No measurable mass. Portal, Superior Mesenteric, and Splenic Veins: Unremarkable. Gallbladder and Biliary Tract: No radiodense calculus or dilation. Pancreas: Normal density, no abnormal calcifications or inflammatory process. Spleen: Normal. Adrenals: No masses seen. Kidneys: Normal size, contour and axis. No radiodense stones or obstructive uropathy. No masses seen. Abdominal Aorta: Abdominal portion non-dilated. Atherosclerotic calcification is present. Bowel: No obstruction or bowel wall thickening. Appendix is unremarkable. Peritoneal Cavity: No ascites, collection or mesenteric inflammatory response. No free air. Lymph Nodes: Within normal limits. Bones: Within normal limits for the patient's age. Soft Tissues: Unremarkable. PELVIS: Bladder: Symmetric distention, no gross wall thickening. Reproductive Organs: Unremarkable as visualized. Lymph Nodes: Within normal limits. Bones: Within normal limits for the patient's age. IMPRESSION: 1. No acute abdominal or pelvic process. 2. Hepatomegaly and hepatic steatosis. RADIATION DOSE DELIVERED: Total DLP DATA REPOSITORY: All CT scans at this facility are submitted to the National Radiology Data Registry (NRDR) Dose Index Registry (DIR) with the [employer] ([employer]). RADIATION OPTIMIZATION: All CT scans at this facility use at least one of these dose optimization te chniques: automated exposure control; mA and/or kV adjustment per patient size (includes targeted exa ms where dose is matched to clinical indication); or iterative reconstruction.
[2023-10-02] MEDS: Ondansetron 4 MG/2 ML VIAL IVP (11:06)
[2023-10-02] MEDS: Normal Saline 10 ML VIAL IJ (11:09)
[2023-10-02 11:13] LABS: Abs Immature Grans 0.03 10^3/uL (0.0-0.06); Absolute Basophil Count 0.02 10^3/uL (0.0-0.2); Absolute Eosinophil Count 0.17 10^3/uL (0.0-0.7); Absolute Lymphocyte Count 1.37 10^3/uL (1.2-3.4); Absolute Neutrophil Count 2.33 10^3/uL (1.2-6.7); Basophils % 0.4; Eosinophils % 3.8; HCT 43.2 % (40.0-50.0); HGB 14.4 g/dL (13.5-17.5); Immature Grans % 0.7; Lymphocytes % 30.3; MCH 27.4 pg (27.0-33.0); MCHC 33.3 % (32.0-36.0); MCV 82 fL (80-95); MPV 9.9 fL (8.0-11.0); Monocytes % 13.3; Neutrophils % 51.5; Platelet Count 237 10^3/uL (130-400); RBC 5.25 10^6/uL (4.36-5.78); RDW 13.3 % (11.8-14.1); RDW-SD 40.4 fL; WBC 4.52 10^3/uL (4.4-10.8)
[2023-10-02 11:30] LABS: ALT 69 U/L (16-63); AST 41 U/L (15-37); Albumin 4.1 g/dL (3.4-5.0); Alkaline Phosphatase 121 U/L (46-116); Anion Gap 9.9 mmol/L (3-11); BUN 12 mg/dL (7-18); Bilirubin, Total 0.8 mg/dL (0.2-1.0); CO2 28.1 mmol/L (21.0-32.0); CREATININE 1.2 mg/dL (0.70-1.30); Calcium 8.8 mg/dL (8.5-10.1); Chloride 105 mmol/L (98-107); Estimated GFR 70.53 (mL/min/1.73m2); Glucose 103 mg/dL (74-106); Lipase 19 U/L (16-77); Potassium 3.8 mmol/L (3.5-5.1); Sodium 143 mmol/L (136-145); Total Protein 7.6 g/dL (6.4-8.2)
[2023-10-02] MEDS: Normal Saline - Diluent 50 ML VIAL IJ (11:41)
[2023-10-02] MEDS: Omnipaque 350 MG/ML 500 ML BTL-Imaging package 100 ML IJ (11:42)
[2023-10-02] MEDS: Normal Saline Flush 10 ML SYR IVP (11:43)
[2023-10-02 23:14] LABS: Hepatitis A Antibody IgM Negative (Negative); Hepatitis B Core Antibody Negative (Negative); Hepatitis B surface Ag Negative (Negative); Hepatitis C Ab w Rflx HCV PCR Negative (Negative)
== END 2023-10-02 13:13 | disposition home or self-care (01) ==
PROVIDERS: Emergency Provider Student in an Organized Health Care Education/Training Program; PCP Family Medicine
DX: R10.33 Periumbilical pain (principal); R19.7 Diarrhea, unspecified; I10 Essential (primary) hypertension; E78.5 Hyperlipidemia, unspecified
CPT/HCPCS: 36415; 76705; 80053; 83690; 86704; 86709; 86803; 87340; 96374; 99285; 74177; 85025; 99284; J2405

== ENCOUNTER 2023-11-08 13:47 | Outpatient (REF) | payer OTHER, SELFPAY | END 2023-11-08 13:48 | disposition home or self-care (01) | LOC: LBN 13:47 | PROVIDERS: PCP Family Medicine; Visit Provider Physician Assistant Medical | DX: J02.9 Acute pharyngitis, unspecified (principal) | CPT/HCPCS: 87070 ==

== ENCOUNTER 2024-03-05 13:03 | Outpatient (REF) | payer OTHER, SELFPAY ==
[2024-03-05 19:43] LABS: Hemoglobin A1C 5.7 % (<5.7)
[2024-03-05 19:51] LABS: ALT 70 U/L (16-63); AST 39 U/L (15-37); Albumin 4.5 g/dL (3.4-5.0); Alkaline Phosphatase 121 U/L (46-116); Anion Gap 9.2 mmol/L (3-11); BUN 12 mg/dL (7-18); Bilirubin, Total 0.67 mg/dL (0.2-1.0); CO2 28.8 mmol/L (21.0-32.0); CREATININE 1.1 mg/dL (0.70-1.30); Calcium 9.3 mg/dL (8.5-10.1); Calculated LDL 74 mg/dL (<100); Chloride 104 mmol/L (98-107); Cholesterol 157 mg/dL (<200); Estimated GFR 77.81 (mL/min/1.73m2); Glucose 104 mg/dL (74-106); HDL Cholesterol 47 mg/dL (40-60); Potassium 3.9 mmol/L (3.5-5.1); Sodium 142 mmol/L (136-145); Total Protein 7.5 g/dL (6.4-8.2); Triglyceride 181 mg/dL (<150)
[2024-03-06 18:32] LABS: PSA, Screening 0.8 ng/mL (<=3.5)
[2024-03-06 19:09] LABS: Hepatitis B Surface Ag Negative (Negative)
[2024-03-06 19:41] LABS: Hep A Total Ab w Rflx IgM Negative (Negative)
[2024-03-06 19:43] LABS: Hepatitis C Ab w Rflx HCV PCR Negative (Negative)
== END 2024-03-05 13:04 | disposition home or self-care (01) ==
LOC: NCHCN 13:03
PROVIDERS: PCP Family Medicine; Visit Provider Nurse Practitioner Family
DX: Z12.5 Encounter for screening for malignant neoplasm of prostate (principal); Z13.1 Encounter for screening for diabetes mellitus; I10 Essential (primary) hypertension; E78.5 Hyperlipidemia, unspecified; Z91.89 Other specified personal risk factors, not elsewhere classified; Z11.59 Encounter for screening for other viral diseases
CPT/HCPCS: 80053; 80061; 84153; 86709; 86803; 87340; 83036

== ENCOUNTER 2025-01-26 09:19 | Emergency (ER) | payer OTHER, SELFPAY ==
--- NOTE | 2025-01-26 09:15 | DI.RAD_ITS ---
Exam(s) XR HAND LT COMPLETE EXAM: XR HAND LT COMPLETE CLINICAL HISTORY: 1-2 webspace lac, sheetrock, eval FB. TECHNIQUE: 2D digital imaging was performed. COMPARISON: No exams were available for comparison FINDINGS: 3 views No evidence of fracture or dislocation. There appears to be soft tissue swelling between the 1st and 2nd metacarpals. There is no gas soft tissues but there is a very thin linear foreign body superficially at this level noted which measures approximately 4-5 mm. No evidence of osteomyelitis. IMPRESSION: Thin relatively superficial subcutaneous foreign body in the 1st webspace. DATA REPOSITORY: RADIATION DOSE DELIVERED:
[2025-01-26 09:19] VITALS: BP 160/97; PULSE 87; RESP 15; TEMP 36.4; O2SAT 99
[2025-01-26] MEDS: Diph,Pertuss(Acell),Tet Vac/Pf 0.5 ML SYR IM (09:48)
[2025-01-26] MEDS: Lidocaine 1% Pres-Free 5 ML VIAL IJ (09:50)
--- NOTE | 2025-01-26 10:01 | ED.GENADUL_ITS ---
Discharge Plan Disposition Patient Disposition: Home Condition: Stable Discharge Details Clinical Impression: Laceration of hand Primary Care Provider: Solo [facility]ridge ED Provider: Valeria Devi Home Meds and New Rx's Prescriptions: No Action multivitamin [Multi-Day] 1 EACH tablet 1 ea PO DAILY nabumetone 500 mg tablet 500 mg PO BID PRN amlodipine 5 mg tablet 5 mg PO DAILY atorvastatin 40 mg tablet 40 mg PO DAILY fluticasone propionate [Flonase Allergy Relief] 50 mcg/actuation spray,suspension 1 spray intranasal DAILY PRN Rx Instructions: administer into each nostril ascorbic acid (vitamin C) [Vitamin C] 500 MG tablet 500 mg PO DAILY vitamin B complex [B-Complex] 1 EACH tablet 1 tab PO DAILY naproxen 500 MG tablet 500 mg PO BID Qty: 20 1RF valsartan 80 mg tablet 80 mg PO DAILY Patient Comments: TAKE ONE TABLET BY MOUTH EVERY DAY WITH AMLODIPINE FOR BLOOD PRESSURE omeprazole 20 mg capsule,delayed release(DR/EC) 20 mg PO DAILY Qty: 20 0RF ibuprofen [Advil Liqui-Gel] 200 MG capsule 200 mg PO 3 TABS TID PRNQty: 0 0RF Discharge Instructions Instructions: Laceration Repair With Stitches ED Additional Instructions: You were seen in the emergency department today for evaluation of a hand laceration. In our department you had a full physical examination performed and had the wound thoroughly cleaned. Your x-ray did not show any large foreign bodies or fractures. You had sutures placed which need to be removed in 7 to 10 days. Please keep the area clean and dry, use [id number] antibiotic ointment and bandages, and change them anytime the area becomes soiled or wet. Please follow-up with your primary care provider in the next few days to discuss this visit and any symptoms that change, worsen, or persist. Thank you for allowing us to be part of your care. Stand Alone Forms: Work Release Discharge Data Discharge Date/Time-TO BE ENTERED AT DEPARTURE: 01/26/25 10:15 HPI General Mode of arrival: ambulatory . Date/Time Provider Initiated Documentation: 01/26/25 09:22 . Limitations to Documentation: no limitations . Information obtained by: patient and old records reviewed . HPI Narrative: This is a 59-year-old male patient with a history of hypertension hyperlipidemia who is presenting for evaluation of a left hand laceration. 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 Prior to this olga nt he was in his normal state of health. He reports that he has no weakness, numbness, or difficulty moving the area, bleeding is controlled. States that he cannot remember when his last tetanus shot was. No other injuries were sustained. Related Data Home Medications ?Medication ?Instructions ?Recorded ?Confirmed multivitamin (Multi-Day tablet) 1 ea PO DAILY 10/19/13 01/26/25 ascorbic acid (vitamin C) 500 mg 500 mg PO DAILY 01/1301/26/25 tablet (Vitamin C) vitamin B complex (B-Complex 1 tab PO DAILY 01/13/14 0 01/26/25 tablet) naproxen 500 mg tablet 500 mg PO BID #20 tabs 08/2801/26/25 Held on 10/05/22. Instructions: Please hold this medication for the next 2 weeks to see if your symptoms improve ibuprofen 200 mg capsule (Advil 200 mg PO 3 TABS TID P RN #0 01/17/17 01/26/25 Liqui-Gel) tab-caps Held on 10/05/22. Instructions: Please hold this medication for the next 2 weeks to see if your symptoms improve omeprazole 20 mg capsule,delayed 20 mg PO DAILY #20 ca ps 10/05/22 01/26/25 release valsartan 80 mg tablet 80 mg PO DAILY 10/05/2212/30 amlodipine 5 mg tablet 5 mg PO DAILY 12/06/2201/26 atorvastatin 40 mg tablet 40 mg PO DAILY 12/06/2212/30 fluticasone propionate 50 1 spray intranasal DAILY PRN 12/06/22 01/26/25 mcg/actuation nasal spray,suspension (Flonase Allergy Relief) nabumetone 500 mg tablet 500 mg PO BID PRN 12/06/22 0 01/26/25 Previous Rx's ?Medication ?Instructions ?Recorded naproxen 500 mg tablet 500 mg PO BID #20 tabs 08/28 Held on 10/05/22. Instructions: Please hold this medication for the next 2 weeks to see if your symptoms improve ibuprofen 200 mg capsule (Advil 200 mg PO 3 TABS TID P RN #0 07/20/17 Liqui-Gel) tab-caps Held on 10/05/22. Instructions: Please hold this medication for the next 2 weeks to see if your symptoms improve omeprazole 20 mg capsule,delayed 20 mg PO DAILY #20 ca ps 10/05/22 release Allergies Allergy/AdvReac Type Severity Reaction Status Date / Time aspirin Allergy Intermediate MAKES Unverified 01/26/25 09:24 NASAL POLYPS BLEED General Stated Complaint: Laceration MIGUEL A: 4 Exam Narrative Exam Narrative: Gen: Awake and alert, in no apparent distress HEENT: Non-icteric sclera Neck: Supple Lungs: No apparent respiratory distress, normal respiratory effort. CV: Appears well perfused Abdomen: Non-distended MSK: Moves 4 extremities without apparent limitation in ROM. The patient is right-hand dominant, left hand has full strength with flexion and extension both actively as well as against resistance. No sensory deficits, brisk capillary refill distal to the injury. Skin: Visualized skin without rashes, cyanosis. The patient has a 1 cm laceration to the webspace between thumb and index finger, hemostatic. Neuro: Normal Gait, no obvious focal deficits or facial asymmetry. Speaks in full, clear sentences. Psych: Appropriate for situation. Course Vital Signs Vital signs: Vital Signs Temperature 36.4 C 01/26/25 09:19 Pulse 87 01/26/25 09:19 Respiratory Rate 15 01/26/25 09:19 Blood Pressure 160/97 H 01/26/25 09:19 Pulse Oximetry 99 01/26/25 09:19 Temperature 36.4 C 01/26/25 09:19 Temperature Source Oral 01/26/25 09:19 Pulse 87 01/26/25 09:19 Respiratory Rate 15 01/26/25 09:19 Blood Pressure 160/97 H 01/26/25 09:19 Blood Pressure Position Sitting 01/26/25 09:19 Pulse Oximetry 99 01/26/25 09:19 Oxygen Delivery Method Room Air 01/26/25 09:19 Oxygen Flow Rate 0 01/26/25 09:19 Pain Level 1 01/26/25 09:24 Procedure Laceration Laceration 1: Date of Procedure: 01/26/25 Time of procedure: 10:01 Provider that performed the procedure: Valeria Devi Patient Consented: Verbally Site: hand Side (If applicable): left Description: linear Depth: simple, single layer Local anesthetic: Lidocaine 1% Amount of anesthesia used (mL): 2 Pre-repair:: wound explored, irrigated extensively and deep structures intact Skin layer closed with: nylon Suture size: 4-0 Number of sutures:: 2 Technique: simple, interrupted Complications: None Medical Decision Making This is a 59-year-old male patient presenting for evaluation of a hand laceration. Differential includes but is not limited to laceration, no evidence for ligamentous injury, no neurovascular derangements. Considered foreign body, mechanism less concerning for fracture or dislocation. We provided the patient with a tetanus booster, obtained an x-ray that did show a very thin linear foreign body. The wound was thoroughly irrigated after this, and I feel that attempted removal would likely cause more injury to the tissues given the small size. 2 sutures were placed as noted above in the webspace, the patient was counseled on removal and wound care. A work note was provided. At this time, the patient has had a full medical evaluation and is safe for discharge to home. They are hemodynamically stable, ambulatory, and tolerating PO. They are understanding of the follow-up plan and return precautions. They left our facility without incident. Valeria Devi MD [facility] All Active Problems (Updated 01/26/25 @ 10:03 by Valeria Devi MD) Laceration of hand (Acute) DJD (degenerative joint disease) (Chronic) Hypertension (Chronic) Hyperlipidemia (Acute) Multiple lipomas (Acute) Plantar fasciitis, bilateral (Acute) Carpal tunnel syndrome (Acute 12/10/13) Allergic rhinitis due to other allergen (Acute 04/05/14) allergy injections D/C Allergic rhinitis (Acute 04/14/14) Acute sinusitis (Acute 03/18/14) Hypertrophy of nasal turbinates (Chronic 11/01/14) Sore throat (viral) (Acute) Medical History Chronic ethmoidal sinusitis (11/01/14) Chronic frontal sinusitis (11/01/14) Chronic maxillary sinusitis (11/01/14) Chronic sinusitis (03/18/14) Chronic sphenoidal sinusitis (11/01/14) Deviated nasal septum (11/01/14) Dysfunction of both eustachian tubes (08/20/16) Mastoiditis of right side (01/28/17) Nasal polyp (03/18/14) Postnasal drip (07/05/14) Surgical History H/O sinus surgery 1989 Social History Smoking/Tobacco Use Status: Never Smoking risk assessment performed?: Yes Alcohol Intake: never Drug use: Never Substance use type: does not use Do you feel safe at home: Yes Do you feel safe in your relationship?: Yes
[2025-01-26 10:15] VITALS: BP 147/90; PULSE 85; RESP 20; TEMP 37.4; O2SAT 98
== END 2025-01-26 10:15 | disposition home or self-care (01) ==
LOC: ER 10:28
PROVIDERS: Emergency Provider Emergency Medicine; PCP Family Medicine
DX: S61.422A Laceration with foreign body of left hand, initial encounter (principal); I10 Essential (primary) hypertension; E78.5 Hyperlipidemia, unspecified; Z23 Encounter for immunization; W29.8XXA Contact with other powered hand tools and household machinery, initial encounter; Y93.H3 Activity, building and construction; Y92.89 Other specified places as the place of occurrence of the external cause
CPT/HCPCS: 12001; 90471; 90715; 99283; 73130; J2003

== ENCOUNTER 2025-04-20 10:56 | Outpatient (REF) | payer OTHER, SELFPAY ==
[2025-04-20 16:11] LABS: ALT 48 U/L (16-63); AST 27 U/L (15-37); Albumin 4.1 g/dL (3.4-5.0); Alkaline Phosphatase 123 U/L (46-116); Anion Gap 9.2 mmol/L (3-11); BUN 11 mg/dL (7-18); Bilirubin, Total 0.5 mg/dL (0.2-1.0); CO2 26.8 mmol/L (21.0-32.0); Calcium 8.8 mg/dL (8.5-10.1); Chloride 104 mmol/L (98-107); Estimated GFR 77.33 (mL/min/1.73m2); Glucose 106 mg/dL (74-106); Lipase 24 U/L (<78); Potassium 4.0 mmol/L (3.5-5.1); Sodium 140 mmol/L (136-145); Total Protein 7.1 g/dL (6.4-8.2)
== END 2025-04-20 10:57 | disposition home or self-care (01) ==
LOC: LBN 10:56
PROVIDERS: PCP Family Medicine; Visit Provider Nurse Practitioner Family
DX: R10.13 Epigastric pain (principal)
CPT/HCPCS: 80053; 83690